=== PATIENT | female | born 1990 | race African-American/Black ===

== ENCOUNTER 2018-08-31 16:17 | Emergency (ER) | payer SELFPAY ==
[~2018-08-31] VITALS: Ht 180.3 cm; Wt 134.3 kg
[2018-08-31 16:34] VITALS: BP 131/81
[2018-08-31] MEDS ORDERED: BUPIVACAINE/PF-EPI 0.25% 1:200K SQ ONE (17:00)
[2018-08-31] MEDS ORDERED: LIDOCAINE-MPF 1%, 5ML INFIL ONE ×2 (17:00)
[2018-08-31] MEDS ORDERED: DIPH,PERTUSS(ACELL),TET VAC/PF 0.5 ML IM-VACC ONE ×2 (17:00→17:21)
[2018-08-31] MEDS ORDERED: BUPIVACAINE 0.25% ONE (17:21)
[2018-08-31] MEDS ORDERED: LIDOCAINE-MPF 1%, 5ML ONE (17:21)
== END 2018-08-31 17:52 | disposition home or self-care (01) ==
LOC: ED 17:11
DX: K04.7 Periapical abscess without sinus (principal)
CPT/HCPCS: 41800; 90471; 90715; 96372; 99283

== ENCOUNTER 2020-04-16 18:36 | Emergency (ER) | payer OTHER ==
[~2020-04-16] VITALS: Ht 182.9 cm; Wt 95.4 kg
--- NOTE | 2020-04-16 19:10 | NUR ---
Pt placed in hospital gown. Clothing and belongs locked up. Pt placed in suicide precautions with ligature assessment adressed. Garage doors down for pt safety. Sitter at bedside.
[2020-04-16 19:25] LABS: BASOPHILS % (AUTO) 1 % (0-1); EOSINOPHILS % (AUTO) 1 % (1-7); LYMPHOCYTES % (AUTO) 36 % (22-44); MEAN CORPUSCULAR HEMOGLOBIN 28.3 pg (27.0-34.8); MEAN CORPUSCULAR HGB CONC 32.6 g/dL (32.4-35.8); MEAN PLATELET VOLUME 9.2 fL (7.4-10.4); MONOCYTES % (AUTO) 6 % (2-9); NEUTROPHILS % (AUTO) 57 % (42-75); PLATELET COUNT 268 x10^3/uL (130-400)
[2020-04-16 19:39] LABS: ALBUMIN 3.4 g/dL (3.4-5.0); ANION GAP 6 mmol/L (5-15); CALCIUM 8.6 mg/dL (8.5-10.1); CHLORIDE 109 mmol/L (98-107)
[2020-04-16 19:47] LABS: MD NO
[2020-04-16 19:51] LABS: CREATININE 0.85 mg/dL (0.55-1.02)
[2020-04-16 19:56] LABS: SALICYLATE LEVEL < 1.7 mg/dL (2.8-20.0)
[2020-04-16] MEDS ORDERED: POTASSIUM CHLORIDE 20 MEQ PACKET ONE (20:16)
[2020-04-16] MEDS ORDERED: POTASSIUM CHLORIDE 20 MEQ PACKET PO ONE (20:30)
[2020-04-17 01:05] LABS: AMPHETAMINE SCREEN, URINE Negative (Negative); BARBITURATE SCREEN, URINE Negative (Negative); BENZODIAZEPINE SCREEN, URINE Negative (Negative); CANNABINOID SCREEN, URINE Negative (Negative); COCAINE SCREEN, URINE Negative (Negative); METHADONE SCREEN, URINE Negative (Negative); OPIATE SCREEN, URINE Negative (Negative)
--- NOTE | 2020-04-17 07:48 | NUR ---
THROUGHPUT RN: PT DENIED BY [facility].
--- NOTE | 2020-04-17 07:49 | NUR ---
PT RESTING ON GURNEY AT THIS TIME, VSS. PT DENIES SI AT THIS TIME, STATES "IM JUST SO SAD" PT TEARFUL. GIVEN WATER PER REQUEST. MEAL TRAY ORDERED. NO OTHER NEEDS AT THIS TIME, SI PRECAUTIONS IN PLACE
--- NOTE | 2020-04-17 08:45 | NUR ---
PT GIVEN MEAL TRAY, PT GRATEFUL. NO OTHER NEEDS
--- NOTE | 2020-04-17 09:52 | NUR ---
REPORT TO JUAN LUIS HOFFMAN
--- NOTE | 2020-04-17 15:00 | NUR ---
PER HARITHA LAZAR. CONTINUATION OF LEGAL HOLD AT THIS TIME. PT STATES SHE IS STILL HAVING FEELINGS AND THOUGHTS OF SUICIDE. Addendum: 04/17/20 at 1910 by MINH NOT
[2020-04-17] MEDS: BUPROPION 100 MG TABLET PO SCH (15:21)
--- NOTE | 2020-04-17 17:02 | NUR ---
THROUGHPUT RN: PER HARITHA PSYCH RESP THER PT NOW HAS PRESUMPTIVE MEDICAID. PACKET REFAXED TO [facility].
[2020-04-17] MEDS ORDERED: TRAZODONE 100MG TABLET PO PRN (21:00)
--- NOTE | 2020-04-17 23:04 | NUR ---
2230: report from ritu acosta. first contact pt watching tv, calm cooperative. safety checks updated. will continue to monitor. sitter outside room.
--- NOTE | 2020-04-18 00:31 | NUR ---
TASK RN: PT SLEEPING IN ROOM AT THIS TIME WITH SITTER OUTSIDE OF ROOM FOR DIRECT OBSERVATION OF PT;
--- NOTE | 2020-04-18 01:26 | NUR ---
PT SLEEPING, SITTER OUTSIDE ROOM. SAFETY CHECKS UPDATED. WILL CONTINUE TO MONITOR
--- NOTE | 2020-04-18 02:47 | NUR ---
NO CHANGE IN ASSESSMENT, SLEEPING, RR EQUAL AND UNLABORED. WILL CONTINUE TO MONITOR, SITTER IN LINE OF SITE.
--- NOTE | 2020-04-18 03:46 | NUR ---
SLEEPING, SITTER OUTSIDE ROOM IN LINE OF SITE. SAFETY UPDATE CHECKED.
--- NOTE | 2020-04-18 05:06 | NUR ---
SLEEPING, RR EQUAL AND UNLABORED. SITTER IN LINE OF SITE. WILL CONTINUE TO MONITOR.
--- NOTE | 2020-04-18 07:03 | NUR ---
REPORT RECEIVED FROM BRENNON HOFFMAN.
--- NOTE | 2020-04-18 07:12 | NUR ---
DIET TRAY/HOSPITAL BED ORDERED AT THIS TIME.
--- NOTE | 2020-04-18 07:46 | NUR ---
medication ordered at this time.
[2020-04-18] MEDS: BUPROPION 100 MG TABLET PO SCH ×2 (08:00→12:00)
--- NOTE | 2020-04-18 08:30 | NUR ---
diet tray provided at this time.
--- NOTE | 2020-04-18 08:38 | NUR ---
pt medicated per emar. pt tolerated well.
--- NOTE | 2020-04-18 08:49 | NUR ---
hospital bed in room.
[2020-04-18 09:09] VITALS: BP 105/68
--- NOTE | 2020-04-18 09:43 | NUR ---
pt amb to br and back to room with steady gait.
--- NOTE | 2020-04-18 10:52 | NUR ---
pt sleeping in hospital bed. resps even and unlabored. sitter monitoring from hallway for safety. room remains secure.
--- NOTE | 2020-04-18 11:02 | NUR ---
diet tray ordered at this time.
--- NOTE | 2020-04-18 12:04 | NUR ---
medication ordered from pharmacy at this time.
--- NOTE | 2020-04-18 12:18 | NUR ---
diet tray provided at this time.
--- NOTE | 2020-04-18 12:39 | NUR ---
DUCK OPERATOR AT BEDSIDE EVALUATING AT THIS TIME.
--- NOTE | 2020-04-18 13:27 | NUR ---
pt medicated per emar. pt tolerated well.
--- NOTE | 2020-04-18 14:44 | NUR ---
pt resting in [facility]. resps even and unlabored. sitter monitoring from hallway for safety. room remains secure.
--- NOTE | 2020-04-18 16:02 | NUR ---
pt resting in [facility]. resps even and unlabored. sitter monitoring from hallway for safety. room remains secure.
--- NOTE | 2020-04-18 16:30 | NUR ---
Patient given discharge instructions and they have confirmed that they understand the instructions. Patient ambulatory with steady gait. taxi voucher given at [facility].
== END 2020-04-18 16:31 | disposition home or self-care (01) ==
LOC: ED 21:50
DX: R45.851 Suicidal ideations (principal); E87.6 Hypokalemia; F32.9 Major depressive disorder, single episode, unspecified; F17.210 Nicotine dependence, cigarettes, uncomplicated
CPT/HCPCS: 36415; 80048; 80307; 82040; 84443; 84703; 85025; 99284

== ENCOUNTER 2020-04-23 10:38 | Emergency (ER) | payer MEDICAID, OTHER ==
[~2020-04-23] VITALS: Ht 180.3 cm; Wt 121.7 kg
--- NOTE | 2020-04-23 11:55 | NUR ---
TO ROOM FROM WALL. NAD.
[2020-04-23 11:57] LABS: BASOPHILS % (AUTO) 1 % (0-1); EOSINOPHILS % (AUTO) 1 % (1-7); LYMPHOCYTES % (AUTO) 32 % (22-44); MEAN CORPUSCULAR HEMOGLOBIN 28.6 pg (27.0-34.8); MEAN CORPUSCULAR HGB CONC 32.5 g/dL (32.4-35.8); MEAN PLATELET VOLUME 8.9 fL (7.4-10.4); MONOCYTES % (AUTO) 7 % (2-9); NEUTROPHILS % (AUTO) 59 % (42-75); PLATELET COUNT 336 x10^3/uL (130-400); RED BLOOD COUNT 4.57 x10^6/uL (3.82-5.3)
[2020-04-23 12:01] LABS: ALBUMIN 3.7 g/dL (3.4-5.0); ANION GAP 9 mmol/L (5-15); CALCIUM 9.1 mg/dL (8.5-10.1); CHLORIDE 110 mmol/L (98-107)
[2020-04-23 12:03] LABS: MD NO
[2020-04-23 12:09] LABS: CREATININE 1.03 mg/dL (0.55-1.02)
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
[2020-04-23 12:10] LABS: SALICYLATE LEVEL < 1.7 mg/dL (2.8-20.0)
[2020-04-23] MEDS ORDERED: BUPR100T8 PO (12:20)
--- NOTE | 2020-04-23 12:31 | NUR ---
can't pee at this time, gave her 4 glasses of warm water as requested.
--- NOTE | 2020-04-23 13:04 | NUR ---
irasema talking to patient.
--- NOTE | 2020-04-23 13:58 | NUR ---
patient in bed, calm. given water. warm blankets x2.
--- NOTE | 2020-04-23 14:10 | NUR ---
patient states she has a headache, will ask for tylenol. hungry, ordered food and got crackers
[2020-04-23 14:34] LABS: AMPHETAMINE SCREEN, URINE Negative (Negative); BARBITURATE SCREEN, URINE Negative (Negative); BENZODIAZEPINE SCREEN, URINE Negative (Negative); CANNABINOID SCREEN, URINE Negative (Negative); COCAINE SCREEN, URINE Negative (Negative); METHADONE SCREEN, URINE Negative (Negative); OPIATE SCREEN, URINE Negative (Negative)
--- NOTE | 2020-04-23 14:34 | NUR ---
got patient crackers/juice/
[2020-04-23] MEDS ORDERED: TRAZODONE 50MG TABLET PO PRN (15:00)
[2020-04-23] MEDS ORDERED: FLUOXETINE HCL 20 MG CAPSULE PO SCH (15:00)
[2020-04-23] MEDS ORDERED: FLUOXETINE HCL 20 MG CAPSULE ONE (15:17)
[2020-04-23] MEDS ORDERED: TRAZODONE 50MG TABLET ONE (15:17)
--- NOTE | 2020-04-23 16:08 | NUR ---
patient is sleeping. will let her rest and medicate her when she wakes up. sitter outside door Addendum: 04/23/20 at 1609 by SANDI patient is watching tv and calm.
--- NOTE | 2020-04-23 16:30 | NUR ---
calm and resting quietly
--- NOTE | 2020-04-23 16:49 | NUR ---
BREAK RN: PT RESTING ON HOSPITAL BED W/ SITTER OUTSIDE ROOM AND GARAGE DOORS DOWN FOR SAFETY. RESP EVEN AND UNLABORED, STEPH.
--- NOTE | 2020-04-23 18:13 | NUR ---
Accepted at [facility] by Rebecca. Accepting doctor Dr. Zhao. Rebecca asks that patient arrives at 20:00 or later.
--- NOTE | 2020-04-23 18:52 | NUR ---
REPORTS TO MARISOL
--- NOTE | 2020-04-23 18:55 | NUR ---
REPORTS TO ALISA HOFFMAN
--- NOTE | 2020-04-23 18:56 | NUR ---
REPORTS TO ALISA AT [facility]
[2020-04-23 19:00] VITALS: BP 115/80
--- NOTE | 2020-04-23 19:00 | NUR ---
Report received and care assumed. Pt resting with no s/s of acute distress. Eating meal tray. Room secured. VSS. Pt to be transferred to [facility]. ETA 1999. Sitter in place for obs.
== END 2020-04-23 19:52 ==
LOC: ED 12:48
DX: R45.851 Suicidal ideations (principal)
CPT/HCPCS: 36415; 80048; 80307; 82040; 84443; 84703; 85025; 99284; 99285

== ENCOUNTER 2021-03-05 10:00 | Emergency (ER) | payer MEDICAID ==
[~2021-03-05] VITALS: Ht 182.9 cm; Wt 125.2 kg
[~2021-03-05 10:00] MED LIST: BUPR100T8 PO
[2021-03-05] MEDS ORDERED: ASPIRIN 81 MG TABLET CHEW ONE (11:47)
--- NOTE | 2021-03-05 11:52 | NUR ---
PT RECLINED IN BED, LABS DRAWN, CXR COMPLETED. MEDICATION ADMINISTERED PER EMAR. PT RESPIRATIONS EVEN AND UNLABORED ON RA. PT DENIES PAIN AT THIS TIME.
[2021-03-05 12:06] LABS: BASOPHILS % (AUTO) 1 % (0-1); EOSINOPHILS % (AUTO) 1 % (1-7); LYMPHOCYTES % (AUTO) 49 % (22-44); MEAN CORPUSCULAR HEMOGLOBIN 29.6 pg (27.0-34.8); MEAN CORPUSCULAR HGB CONC 33.2 g/dL (32.4-35.8); MEAN PLATELET VOLUME 9.1 fL (7.4-10.4); MONOCYTES % (AUTO) 9 % (2-9); NEUTROPHILS % (AUTO) 40 % (42-75); PLATELET COUNT 186 x10^3/uL (130-400); RED BLOOD COUNT 4.63 x10^6/uL (3.82-5.3); RED CELL DISTRIBUTION WIDTH 14.3 % (9.6-15.2)
[2021-03-05 12:20] LABS: ALBUMIN 3.4 g/dL (3.4-5.0); ANION GAP 5 mmol/L (5-15); CALCIUM 8.6 mg/dL (8.5-10.1); CHLORIDE 112 mmol/L (98-107)
[2021-03-05 12:27] LABS: CREATININE 0.61 mg/dL (0.55-1.02); TROPONIN I < 0.015 ng/mL (0.000-0.045)
[2021-03-05] MEDS ORDERED: ASPIRIN 81 MG TABLET CHEW PO ONE (12:30)
[2021-03-05 12:55] VITALS: BP 106/58
== END 2021-03-05 12:57 | disposition home or self-care (01) ==
LOC: ED 11:00
DX: J06.9 Acute upper respiratory infection, unspecified (principal); Z20.822 Contact with and (suspected) exposure to COVID-19; R07.89 Other chest pain; F17.210 Nicotine dependence, cigarettes, uncomplicated
CPT/HCPCS: 36415; 71045; 80048; 82040; 84484; 85025; 93005; 99285; U0003; U0005